=== PATIENT | male | born 1980 | race Caucasian/White ===

== ENCOUNTER 2020-10-23 02:32 | Emergency (ER) | payer OTHER | END 2020-10-23 03:15 | disposition home or self-care (01) | LOC: ER1 02:32 | DX: R20.8 Other disturbances of skin sensation (principal) | CPT/HCPCS: 93005; 99283 ==

== ENCOUNTER 2020-10-23 03:31 | Emergency (ER) | payer MEDICARE | END 2020-10-23 03:38 | disposition left against medical advice (07) | LOC: ER1 03:31 | DX: Z53.21 Procedure and treatment not carried out due to patient leaving prior to being seen by health care provider (principal) ==